=== PATIENT | male | born 1965 | race Caucasian/White ===

== ENCOUNTER → 2016-09-09 | Outpatient (CLI) | payer BC ==
[~2016-09-09] MED LIST: NONE PER PT
[2016-09-09 12:31] LABS: HEMOGLOBIN 15.9 g/dL (13.7-18.0)
[2016-09-09 12:45] LABS: BLOOD UREA NITROGEN 14 mg/dL (7-18)
[2016-09-09 12:47] LABS: ASPARTATE AMINO TRANSFERASE 23 U/L (15-37)
== END | disposition home or self-care (01) ==
LOC: STAR 11:44
PROVIDERS: ATTEND Neurological Surgery
DX: Z01.818 Encounter for other preprocedural examination (principal); M54.12 Radiculopathy, cervical region; R79.1 Abnormal coagulation profile
CPT/HCPCS: 36415; 71020; 80053; 85025; 85610; 85730; 93005

== ENCOUNTER 2016-09-14 11:24 | Observation (INO) | payer BC ==
[~2016-09-14] VITALS: Ht 177.8 cm; Wt 88.9 kg
[~2016-09-14 11:24] MED LIST changes: +BACITRACIN 50,000 UNIT ONE; +BACITRACIN OINT 500U/GM, 15 GM ONE; +BUPIVACAINE/PF-EPI 0.25% 1:200K ONE; +THROMBIN 5,000 UNIT VIAL TP ONE
[2016-09-14] MEDS ORDERED: HYDR-3138 PO (11:58)
[2016-09-14] MEDS ORDERED: GABA300C10 PO (11:58)
[2016-09-14] MEDS ORDERED: METH750T87 PO (11:58)
[2016-09-14] MEDS ORDERED: LIDOCAINE 1%, 2ML SQ PRN (12:00)
[2016-09-14] MEDS: LACTATED RINGERS 1,000 ML IV SCH ×2 (12:15→18:43)
[2016-09-14] MEDS ORDERED: hydrALAzine 20 MG/ML, 1ML IV PRN (14:00)
[2016-09-14] MEDS ORDERED: MIDAZOLAM 1 MG/ML, 2ML IV PRN (14:00)
[2016-09-14] MEDS ORDERED: LABETALOL 5MG/ML, 20ML IV PRN (14:00)
[2016-09-14] MEDS ORDERED: PROMETHAZINE 25 MG/ML, 1ML IV PRN (14:00)
[2016-09-14] MEDS ORDERED: ONDANSETRON 2MG/ML, 2ML IVPush PRN ×2 (14:00→15:00)
[2016-09-14] MEDS ORDERED: MEPERIDINE/PF 25MG/0.5ML IVPush PRN (14:00)
[2016-09-14] MEDS ORDERED: OXYcodone 5 MG/5 ML ORAL.SOL UDC PO PRN (14:00)
[2016-09-14] MEDS ORDERED: HYDROmorphone/PF 4 MG/ML, 1ML IM PRN (15:00)
[2016-09-14] MEDS ORDERED: HYDROcodone/APAP 5/325 TABLET PO PRN (15:00)
[2016-09-14] MEDS ORDERED: PROMETHAZINE 25 MG/ML, 1ML IM PRN (15:00)
[2016-09-14] MEDS ORDERED: PHARMACY MAY ADJ FOR RENAL FX MC PRN (15:00)
[2016-09-14] MEDS ORDERED: DIPHENHYDRAMINE 50 MG CAPSULE PO PRN (15:00)
[2016-09-14] MEDS ORDERED: BISACODYL 10 MG SUPP PR PRN (15:00)
[2016-09-14] MEDS ORDERED: SENNA/DOCUSATE TABLET PO PRN (15:00)
[2016-09-14] MEDS ORDERED: MAGNESIUM HYDROXIDE 8%, 30ML UDC PO PRN (15:00)
[2016-09-14] MEDS ORDERED: ACETAMINOPHEN 650 MG/20.3 ML UDC ONE (15:12)
[2016-09-14] MEDS ORDERED: FENTANYL PF 100 MCG/2ML ONE ×2 (15:12→15:25)
[2016-09-14] MEDS ORDERED: OXYcodone 5 MG/5 ML ORAL.SOL UDC ONE (15:13)
[2016-09-14] MEDS: FENTANYL PF 100 MCG/2ML IV PRN ×4 (15:15→15:45)
[2016-09-14] MEDS ORDERED: CEFAZOLIN 1,000 MG ONE (15:26)
[2016-09-14] MEDS ORDERED: DEXAMETHASONE 4 MG/ML, 1ML ONE (15:26)
[2016-09-14] MEDS ORDERED: PROPOFOL 10 MG/ML, 50ML ONE (15:26)
[2016-09-14] MEDS ORDERED: ONDANSETRON 2MG/ML, 2ML ONE (15:26)
[2016-09-14] MEDS ORDERED: SUCCINYLCHOLINE 20 MG/ML, 10ML ONE (15:26)
[2016-09-14] MEDS ORDERED: METOCLOPRAMIDE 5 MG/ML, 2ML ONE (15:26)
[2016-09-14] MEDS ORDERED: PROPOFOL 10 MG/ML, 20ML ONE (15:26)
[2016-09-14] MEDS: GABAPENTIN 300 MG CAPSULE PO SCH ×2 (16:00→21:00)
[2016-09-14] MEDS: HYDROmorphone 1 MG/ML, 1ML IV PRN ×4 (16:04→16:30)
[2016-09-14] MEDS ORDERED: ACETAMINOPHEN 650 MG/20.3 ML UDC PO PRN (17:30)
[2016-09-14] MEDS: NS + 20MEQ KCL 1,000 ML IV SCH (18:39)
[2016-09-14] MEDS: HYDROcodone/APAP 10/325 MG TABLET PO PRN ×2 (18:39→22:48)
[2016-09-14] MEDS: METHOCARBAMOL 750 MG TABLET PO PRN (20:27)
[2016-09-14] MEDS ORDERED: SODIUM CHLORIDE FLUSH 10ML SYR IVF SCH (21:00)
[2016-09-14 21:03] VITALS: BP 122/81
[2016-09-14] MEDS: CEFAZOLIN PMX 1GM/50ML 50 ML IVPB SCH (21:44)
[2016-09-15 00:27] VITALS: BP 100/61
[2016-09-15] MEDS: HYDROcodone/APAP 10/325 MG TABLET PO PRN ×2 (03:32→09:37)
[2016-09-15 04:17] VITALS: BP 112/74
[2016-09-15] MEDS: METHOCARBAMOL 750 MG TABLET PO PRN (05:46)
[2016-09-15] MEDS: CEFAZOLIN PMX 1GM/50ML 50 ML IVPB SCH (05:46)
[2016-09-15] MEDS: NS + 20MEQ KCL 1,000 ML IV SCH (06:33)
[2016-09-15 06:51] VITALS: BP 99/62
[2016-09-15 09:38] VITALS: BP 115/72
[2016-09-15] MEDS ORDERED: HYDR-879 PO (09:43)
== END 2016-09-15 09:56 | disposition home or self-care (01) ==
LOC: OUT 11:24 → EDSTATUS 14:30 → 4NOR 17:21 → OUT 22:03 → 4NOR 22:16
PROVIDERS: ADMIT Neurological Surgery; ATTEND Neurological Surgery
DX: M54.12 Radiculopathy, cervical region (principal); M50.222 Other cervical disc displacement at C5-C6 level; M48.02 Spinal stenosis, cervical region
CPT/HCPCS: 22551; 22552; 22853; 36415; 72040; 86850; 86900; 95938; 95941; 96365; 96375; C1713; C1762; C1776; G0378; J0330; J0690; J1100; J1170; J2405; J2704; J2765; J3010; J3480; J3490; J7120